=== PATIENT | male | born 1945 | race Hispanic/Latino ===

== ENCOUNTER 2023-12-21 01:36 | Inpatient (IN) | payer OTHER ==
[2023-12-21] MEDS ORDERED: Glucagon 1 MG/ML KIT IM PRN ×2 (02:17→15:56)
[2023-12-21] MEDS ORDERED: Ondansetron PF 4 MG/2 ML Vial IVP PRN ×2 (02:17→15:56)
[2023-12-21] MEDS ORDERED: Dextrose 5% in Water 1,000 ML IV PRN ×2 (02:17→15:56)
[2023-12-21] MEDS ORDERED: Promethazine HCl 25 MG/ML VIAL IM PRN ×2 (02:17→15:01)
[2023-12-21] MEDS ORDERED: hydrALAZINE 20 MG/ML VIAL SLOW IVP PRN (02:17)
[2023-12-21] MEDS ORDERED: Dextrose 50% Abboject 50 ML SYRINGE SLOW IVP PRN ×2 (02:17→15:56)
[2023-12-21] MEDS ORDERED: traMADol HCl 50 MG TAB PO PRN (02:17)
[2023-12-21] MEDS ORDERED: Acetaminophen 325 MG TAB PO PRN (02:17)
[2023-12-21 02:30] VITALS: BMI 28.9
[2023-12-21] MEDS: Piperacillin/Tazobactam 3.375 GM in Sodium Chloride 0.9% 100 ML IVPB SCH ×2 (03:39→08:52)
[2023-12-21] MEDS: Sodium Chloride 0.9% 1,000 ML IV SCH (03:47)
[2023-12-21] MEDS: Morphine 4 MG/ML VIAL SLOW IVP PRN (03:50)
[2023-12-21 05:11] LABS: #Basophils 0.03 10x3/uL (0.0-0.2); %Basophils 0.5 % (0.0-1.0); %Lymphocytes 7.7 % (21.0-51.0); %Monocytes 9.2 % (0.0-10.0); %Neutrophils 81.3 % (42.0-75.0); Hematocrit 34.3 % (42.0-52.0); Hemoglobin 11.7 g/dL (14.0-18.0); Mean Corpuscular HGB CONC 34.1 g/dL (32.0-36.0); Mean Corpuscular Hemoglobin 31.6 pg (27.0-31.0); Mean Corpuscular Volume 92.7 fL (78.0-98.0); Mean Platelet Volume 8.6 fL (7.4-10.4); Platelet Count 293 10x3/uL (130-400); RBC Distribution Width 13.6 % (11.5-14.5)
[2023-12-21 05:43] LABS: Anion Gap 14 mmol/L (10-20); BUN (Urea Nitrogen) 21 mg/dL (8.4-25.7); Calc. Creatinine Clearance 61 mL/min (70-130); Calcium 8.8 mg/dL (7.8-10.44); Carbon Dioxide 20 mmol/L (23-31); Chloride 103 mmol/L (98-107); Estimated GFR 89; Glucose 77 mg/dL (83-110); Potassium 4.5 mmol/L (3.5-5.1); Sodium 132 mmol/L (136-145)
[2023-12-21] MEDS: Famotidine/PF 20 mg/2ml Vial SLOW IVP SCH (08:53)
[2023-12-21] MEDS: Piperacillin/Tazobactam 3.375 GM VIAL ONE (09:45)
[2023-12-21] MEDS ORDERED: fentaNYL 50 mcg/mL 1 mL Vial ONE (13:18)
[2023-12-21] MEDS ORDERED: PROPOFOL 0 ML ONE (13:18)
[2023-12-21] MEDS ORDERED: Lidocaine 2% PF 5 ML VIAL ONE (13:18)
[2023-12-21] MEDS ORDERED: Rocuronium Bromide 10 MG/ML (10ML VIAL) ONE (13:19)
[2023-12-21] MEDS ORDERED: Dexamethasone 4 mg/ml Vial ONE (13:19)
[2023-12-21] MEDS ORDERED: Ondansetron PF 4 MG/2 ML Vial ONE ×2 (13:19→15:01)
[2023-12-21] MEDS ORDERED: Bupivacaine 0.25% HCL 30 ML VIAL ONE (13:38)
[2023-12-21] MEDS ORDERED: EPINEPHrine 1 MG/ML VIAL ONE (13:38)
[2023-12-21] MEDS ORDERED: SUCCINYLCHOLINE/SOD CL,ISO/PF 200 MG/10 ML SYRINGE FS ONE (14:05)
[2023-12-21] MEDS ORDERED: ePHEDrine Sulfate 50 MG/10 ML VIAL ONE (14:31)
[2023-12-21] MEDS ORDERED: Albumin 5% 500 ML ONE (14:40)
[2023-12-21] MEDS ORDERED: metroNIDAZOLE 500 MG (100 mL) BAG ONE (14:47)
[2023-12-21] MEDS ORDERED: HYDROmorphone 2 MG/ML VIAL SLOW IVP PRN (15:01)
[2023-12-21] MEDS ORDERED: Ondansetron HCl/PF 4 MG/2 ML Vial IVP PRN (15:01)
[2023-12-21] MEDS ORDERED: fentaNYL PF 100 MCG/2 ML SYRINGE ONE (15:01)
[2023-12-21] MEDS ORDERED: SUGAMMADEX SODIUM 200 MG/2 ML VIAL ONE (15:10)
[2023-12-21 15:57] VITALS: BMI 28.9
[2023-12-21] MEDS: FLU (Fluad Triv) TS24-25 (65UP)/MF59C/PF 45 MCG/0.5 ML Syringe IM ONE (16:25)
[2023-12-21] MEDS: D5 1/2 NS w/20 mEq KCL 1,000 ML IV SCH (17:31)
[2023-12-21] MEDS: Ketorolac Tromethamine 30 MG (1 mL) VIAL IVP SCH (18:16)
[2023-12-21] MEDS: Enoxaparin 40 MG (0.4 mL) SYRINGE SC SCH (22:43)
[2023-12-21] MEDS: Famotidine 20 MG TAB PO SCH (22:44)
[2023-12-21] MEDS: HYDROcodone/Acetaminophen 10/325 mg Tablet PO PRN (22:50)
[2023-12-22] MEDS: Ketorolac Tromethamine 30 MG (1 mL) VIAL IVP SCH (10:10)
[2023-12-22 12:03] VITALS: BP 109/57; TEMP 98.1
== END 2023-12-22 16:42 | DRG 398 ==
LOC: EEVIPCON 01:36 → SURG B 01:36
PROVIDERS: ADMIT Surgery; ATTEND Surgery
PROC: 0DTJ4ZZ Resection of Appendix, Percutaneous Endoscopic Approach (ICD-10-PCS; principal; 2023-12-21)
DX: K35.80 Unspecified acute appendicitis (principal); K40.30 Unilateral inguinal hernia, with obstruction, without gangrene, not specified as recurrent; E11.9 Type 2 diabetes mellitus without complications; I10 Essential (primary) hypertension; Z79.82 Long term (current) use of aspirin; Z79.899 Other long term (current) drug therapy; Z79.1 Long term (current) use of non-steroidal anti-inflammatories (NSAID)
CPT/HCPCS: 36415; 36416; 80048; 85025; 88304; J0171; J0665; J1100; J1650; J1885; J2001; J2272; J2405; J2543; J2704; J3010; J3480; J3490; J7030; P9045